=== PATIENT | female | born 1995 | race Caucasian/White ===

== ENCOUNTER 2017-11-29 19:48 | Inpatient (IN) | payer OTHER ==
[~2017-11-29] VITALS: Ht 162.6 cm; Wt 81.6 kg
[2017-11-29] MEDS ORDERED: RINGERS SOLUTION,LACTATED 1,000 ML IV PRN (21:19)
[2017-11-29] MEDS ORDERED: OXYTOCIN 30 UNITS/LACT RINGERS 500 ML IV ONE (21:21)
[2017-11-29] MEDS ORDERED: LIDOCAINE/PF 1% 30 ML VIAL INJ PRN (21:30)
[2017-11-29] MEDS ORDERED: METOCLOPRAMIDE HCL 5 MG/ML 2 ML VIAL IVP PRN (21:30)
[2017-11-29] MEDS ORDERED: CITRIC ACID/SODIUM CITRATE 30 ML SOLUTION UDCUP PO PRN (21:30)
[2017-11-29] MEDS ORDERED: METHYLERGONOVINE MALEATE 0.2 MG/ML VIAL IM PRN (21:30)
[2017-11-29] MEDS ORDERED: FentaNYL CITRATE-PF 100 MCG/2 ML VIAL IVP PRN (21:30)
[2017-11-29 21:37] VITALS: BP 122/66
[2017-11-29] MEDS ORDERED: PREN1TAB80 PO (21:43)
[2017-11-29 21:50] LABS: BASOPHILS % (AUTO) 0.6 % (0.0-2.0); EOSINOPHILS % (AUTO) 2.1 % (1.0-6.0); HEMATOCRIT 32.6 % (36-46); LYMPHOCYTES # (AUTO) 1.5 K/uL (1.0-4.8); MEAN CORPUSCULAR HEMOGLOBIN 29.6 pg (26.0-34.0); MEAN CORPUSCULAR HGB CONC 33.9 G/dL (31.0-37.0); MEAN CORPUSCULAR VOLUME 87 fL (80-100); MONOCYTES # (AUTO) 0.5 K/uL (0.1-1.0); MONOCYTES % (AUTO) 7.1 % (2.0-9.0); NEUTROPHILS # (AUTO) 4.6 K/uL (1.8-7.7); NEUTROPHILS % (AUTO) 68.2 % (40.0-70.0); PLATELET COUNT (AUTO)-OB 161 K/uL (150-450); RED BLOOD CELL COUNT(AUTO) 3.73 MIL/uL (4.00-5.20); RED CELL DISTRIBUTION WIDTH 13.6 % (11.5-14.5)
[2017-11-29] MEDS: RINGERS SOLUTION,LACTATED 1,000 ML IV SCH (22:24)
[2017-11-30] MEDS ORDERED: OXYTOCIN 30 UNITS/LACT RINGERS 500 ML IV PRN (00:25)
[2017-11-30] MEDS: RINGERS SOLUTION,LACTATED 1,000 ML IV SCH ×3 (06:31→23:47)
[2017-11-30] MEDS ORDERED: OXYGEN THERAPY IH SCH (08:00)
[2017-11-30] MEDS ORDERED: ROPIVACAINE HCL/PF 0.2% 100 ML ED ONE (09:38)
[2017-11-30] MEDS ORDERED: LIDOCAINE/PF 2% 5 ML VIAL ONE ×2 (09:38→20:30)
[2017-11-30] MEDS ORDERED: ROPIVACAINE HCL/PF 0.2% 100 ML ED PRN (10:30)
[2017-11-30] MEDS ORDERED: DiphenhydrAMINE HCL 50 MG/ML VIAL IVP PRN ×2 (10:30→23:00)
[2017-11-30] MEDS ORDERED: AMPICILLIN SODIUM 2 GM/NS 100 ML IV ONE (10:30)
[2017-11-30] MEDS ORDERED: NALBUPHINE HCL 10 MG/ML VIAL IVP PRN ×3 (10:30→23:00)
[2017-11-30] MEDS ORDERED: ONDANSETRON HCL 4 MG/2 ML VIAL IVP PRN ×2 (10:30→23:00)
[2017-11-30] MEDS: AMPICILLIN SODIUM 1 GM/NS 50 ML IV SCH ×2 (14:20→18:08)
[2017-11-30] MEDS ORDERED: SODIUM CHLORIDE 0.9% 1,000 ML IV ONE (20:40)
[2017-11-30] MEDS ORDERED: RINGERS SOLUTION,LACTATED 1,000 ML IV ONE (21:08)
[2017-11-30] MEDS ORDERED: GENTAMICIN 120 MG/NACL ISO-OSM 100 ML IV ONE (21:15)
[2017-11-30] MEDS ORDERED: MORPHINE SULFATE 10 MG/ML SYRINGE IVP PRN (22:00)
[2017-11-30] MEDS ORDERED: MEPERIDINE-PF 25 MG/ML VIAL IVP PRN (22:00)
[2017-11-30] MEDS ORDERED: NALOXONE HCL 0.4 MG/ML VIAL IVP PRN (22:00)
[2017-11-30] MEDS ORDERED: FentaNYL CITRATE-PF 100 MCG/2 ML VIAL IVP PRN ×2 (22:00)
[2017-11-30] MEDS ORDERED: HYDROmorphone 2 MG/ML SYRINGE IVP PRN (22:00)
[2017-11-30] MEDS ORDERED: LANOLIN 7 GM OINTMENT TP PRN (22:15)
[2017-11-30] MEDS ORDERED: ACETAMINOPHEN/CODEINE 300-30 MG TABLET PO PRN ×2 (22:15)
[2017-12-01] MEDS: DEXTROSE 5%-0.45% SODIUM CHL 1,000 ML IV SCH ×4 (00:13→12:27)
[2017-12-01] MEDS: ACETAMINOPHEN 1000 MG/ISO-OSM 100 ML IV SCH ×2 (00:13→07:56)
[2017-12-01] MEDS: KETOROLAC TROMETHAMINE 30 MG/ML VIAL IVP SCH ×2 (07:13→12:48)
[2017-12-01] MEDS ORDERED: OXYGEN THERAPY IH SCH ×3 (08:00)
[2017-12-01] MEDS: MAGNESIUM HYDROXIDE SUSPENSION 30 ML UDCUP PO SCH ×2 (08:45→21:11)
[2017-12-01] MEDS: IBUPROFEN 800 MG TABLET PO SCH ×2 (15:20→21:11)
[2017-12-02] MEDS: IBUPROFEN 800 MG TABLET PO SCH ×4 (03:00→22:15)
[2017-12-02] MEDS ORDERED: ONDANSETRON HCL 4 MG/2 ML VIAL IVP ONE (06:22)
[2017-12-02] MEDS ORDERED: KETOROLAC TROMETHAMINE 60 MG/2 ML VIAL IM ONE (06:22)
[2017-12-02] MEDS ORDERED: MORPHINE SULFATE/PF 0.5 MG/ML 10 ML AMP IVP ONE (06:22)
[2017-12-02] MEDS ORDERED: FentaNYL CITRATE-PF 100 MCG/2 ML VIAL IVP ONE (06:22)
[2017-12-02] MEDS ORDERED: OXYTOCIN 10 UNITS/ML VIAL IM ONE (06:22)
[2017-12-02] MEDS: MAGNESIUM HYDROXIDE SUSPENSION 30 ML UDCUP PO SCH ×2 (09:00→22:16)
[2017-12-03] MEDS: IBUPROFEN 800 MG TABLET PO SCH (06:54)
[2017-12-03] MEDS: MAGNESIUM HYDROXIDE SUSPENSION 30 ML UDCUP PO SCH (09:00)
[2017-12-03] MEDS ORDERED: IBUP-2071 PO (12:40)
== END 2017-12-03 14:10 | disposition home or self-care (01) | DRG 788 ==
LOC: OBSVTOIN 19:48 → 4S 19:48 → NSY 11-30 23:36 → 4S 11-30 23:37
PROVIDERS: ADMIT Obstetrics & Gynecology; ATTEND Obstetrics & Gynecology
PROC: 10D00Z1 Extraction of Products of Conception, Low, Open Approach (ICD-10-PCS; principal; 2017-11-30)
DX: O33.9 Maternal care for disproportion, unspecified (principal); Z3A.39 39 weeks gestation of pregnancy; O62.0 Primary inadequate contractions; O62.1 Secondary uterine inertia; Z37.0 Single live birth; Z28.21 Immunization not carried out because of patient refusal
CPT/HCPCS: 86850; 86900; 86901; 87081; 89060; J0131; J0290; J1580; J1885; J2274; J2405; J2590; J2765; J2795; J3010; J3490; J7030; J7120